=== PATIENT | female | born 1975 | race Caucasian/White ===

== ENCOUNTER 2024-11-29 15:33 | Emergency (ER) | payer BC ==
[~2024-11-29] VITALS: Ht 175.3 cm; Wt 81.6 kg
[2024-11-29 15:36] VITALS: BP 173/106; PULSE 97; RESP 18; TEMP 98.6
--- NOTE | 2024-11-29 15:39 | ERN ---
ED Note History of Present Illness Stated Complaint: CAN'T HEAR Chief Complaint: Other Problems Time Seen by MD: 15:35 Dictation: PATIENT IS A 49-YEAR-OLD FEMALE COMING IN WITH COMPLAINTS OF DECREASED HEARING LOSS TO BOTH EARS AND FEELS LIKE SHE IS HEARING THREW FLUID FOR THE LAST THREE MONTHS STARTING IN JULY. SHE STATESK SHE WAS A PATIENT OF DR. BLUM, HE DID AN EAR FLUSH TWO MONTHS AGO AND SHE SAID IT HURT QUITE A BIT. HE SAID HE WAS GOING TO REFER HER TO AN ENT HOWEVER THAT HAS BEEN BOOKED UP UNTIL JANUARY. Allergies: Coded Allergies: No Known Drug Allergies (Unverified Allergy, Unknown, 11/29/24) Past Medical History History: Not Applicable RN Note Reviewed/Agreed w/PFSH: Yes Review of System Dictation CONSTITUTIONAL: NEGATIVE EXCEPT FOR HPI HEAD/FACE: NEGATIVE EXCEPT FOR HPI EENT: NEGATIVE EXCEPT FOR HPI DECREASED HEARING BILATERALLY RESPIRATORY: NEGATIVE EXCEPT FOR HPI GASTROINTESTINAL/ABDOMINAL: NEGATIVE EXCEPT FOR HPI GENITOURINARY: NEGATIVE EXCEPT FOR HPI MUSCULOSKELETAL: NEGATIVE EXCEPT FOR HPI INTEGUMENTARY: NEGATIVE EXCEPT FOR HPI NEUROLOGICAL/PSYCH: NEGATIVE EXCEPT FOR HPI HEMATOLOGIC/LYMPHATIC: NEGATIVE EXCEPT FOR HPI ALL SYSTEMS NEGATIVE, EXCEPT NOTED ABOVE. 13 POINT REVIEW OF SYSTEMS ASSESSED AND ALL NEGATIVE EXCEPT FOR ABOVE. Initial Vital Sign VS Vital Signs Date Time Temp Pulse Resp B/P (MAP) Pulse Ox O2 Delivery O2 Flow Rate FiO2 11/29/24 15:36 98.6 97 18 173/106 98 Room Air 0 Physical Exam Dictation VITAL SIGNS REVIEWED GENERAL APPEARANCE: ALERT, ORIENTED X 3, NO ACUTE DISTRESS, WELL DEVELOPED, NOURISHED. HEAD AND FACE: NON-TRAUMATIC. EYES: PERRL, PINK CONJUNCTIVAS, EYELID NO TRAUMA, ANTERIOR CHAMBER WITH ARCUS SENILIS. EARS: PINNAS INTACT AND NO SIGNS OF TRAUMA UNABLE TO VISUALIZE BILATERAL TYMPANIC MEMBRANE SECONDARY TO CERUMEN IMPACTION. NO MASTOID TENDERNESS CANALS INTACT NOSE: NO DISCHARGE, NO BLEEDING. OROPHARYNX: MOUTH NORMAL, TONGUE PINK, PHARYNX CLEAR,NO ERYTHEMA, TONSILS NO EXUDATES, NO ABSCESSES NOTED, MUCOUS MEMBRANE MOIST NECK: SUPPLE, NON-TENDER, NO THYROMEGALY, NO MASSES, NO JVD, NO BRUITS BREAST:DEFERRED CHEST:NO TENDERNESS, NO CREPITUS, NO PARADOXICAL MOVEMENT, NO RETRACTIONS LUNGS:CLEAR, WELL-VENTILATED, SYMMETRIC, NO RALES, NO WHEEZING, NO RHONCHI, NO STRIDOR, GOOD BREATH SOUNDS BILATERALLY HEART: REGULAR RATE, REGULAR RHYTHM, NO MURMUR, NO GALLOPS VASCULAR: NO PERIPHERAL EDEMA, ABDOMEN: SOFT, POSITIVE BOWEL SOUNDS, NONDISTENDED, NO GUARDING, NONTENDER, NO REBOUND, NO MASSES NO HEPATOMEGALY, NO SPLENOMEGALY, NO CALI'S SIGN, NO HERNIAS. RECTAL: DEFERRED GENITAL: DEFERRED NEUROLOGICAL: NORMAL SPEECH, MOTOR FUNCTION INTACT, SENSORY FUNCTION INTACT MUSCULOSKELETAL: NECK NONTENDER, FULL RANGE OF MOTION, BACK NONTENDER, FULL RANGE OF MOTION, EXTREMITIES: NONTENDER, FULL RANGE OF MOTION SKIN: COLOR PINK, DRY, NO TURGOR, NO RASH, NO LACERATIONS, NO ABRASIONS, NO CONTUSIONS. LYMPHATIC: DEFERRED Results (Laboratory/Radiology) Labs Reviewed?: Yes ED Course ED Course Vital Signs Date Time Temp Pulse Resp B/P (MAP) Pulse Ox O2 Delivery O2 Flow Rate FiO2 11/29/24 15:36 98.6 97 18 173/106 98 Room Air 0 1600/PATIENT GIVEN INFORMATION ON CERUMEN REMOVAL KIT CENTER AVAILABLE [id number] Medical Decision Making [facility] MEDICAL DISCHARGE MAKING BASED ON BASIC EXAM AND TEACHING PATIENT TO STOP USING Q-TIPS IN EARS BUY [id number] CERUMEN REMOVAL KIT AND APPROPRIATE USE. DX & DISP Disposition: Discharge Departure Impression: Primary Impression: Bilateral hearing loss due to cerumen impaction Condition: Stable Additional Instructions: FOLLOW-UP WITH PRIMARY CARE PROVIDER IN 1 TO 2 DAYS. TAKE MEDICATIONS DIRECTED HERE IN THE EMERGENCY ROOM. OKAY TO CONTINUE HOME MEDICATIONS UNLESS OTHERWISE DISCUSSED DURING YOUR VISIT IN THE EMERGENCY ROOM TODAY. RETURN TO YOUR NEAREST EMERGENCY ROOM IF SYMPTOMS WORSEN OR IF THERE IS NO IMPROVEMENT. CALL 911 IF YOU NEED IMMEDIATE ASSISTANCE. TAKE TYLENOL OR MOTRIN [id number] NEEDED AND IF NO CONTRAINDICATIONS ARE PRESENT. INCREASE ORAL HYDRATION. A WOUND CULTURE OR URINE CULTURE WAS ORDERED HERE IN THE EMERGENCY ROOM DEPARTMENT PLEASE FOLLOW-UP WITH PRIMARY CARE PROVIDER AND ADVISE THEM TO GET REPEAT PORTS FROM OUR FACILITY. IF YOU HAD ANY LAKESHA WRAP/SPLINTS THAT WERE APPLIED HERE, PLEASE DO NOT REMOVE THEM UNTIL YOU SEE YOUR PRIMARY CARE OR SPECIALTY. SUGGEST EAR WAX REMOVAL KIT [id number] WITH THE EMULSIFYING AGENT AND BULB. PUT 10-12 DROPS IN EAR LAY ON YOUR SIDE AND MASSAGE INTO YOUR EAR. LEAVE DROPS IN 10-12 MINUTES UNTIL THEY ARE BUBBLING, THEN RINSE OUT EAR WITH BULB AND WARM WATER. REPEAT ON THE OTHER SIDE. STOP USING Q-TIPS IN EARS AND FOLLOW UP WITH THE YOUR [employer]. Referrals: SELF,REFERRAL (PCP) Time of Disposition: 15:57 I have reviewed the case, and I agree with, Diagnosis and Plan IVONNE PORTILLO NP November 29, 2024 15:39
== END 2024-11-29 16:04 | disposition home or self-care (01) ==
LOC: EDH 15:33
DX: H91.93 Unspecified hearing loss, bilateral (principal)
CPT/HCPCS: 99282